=== PATIENT | male | born 1960 | race Caucasian/White ===

== ENCOUNTER 2018-08-02 08:38 | Outpatient (CLI) | payer OTHER ==
[2018-08-02 09:33] LABS: CLARITY,URINE CLEAR (Clear); COLOR,URINE YELLOW (Yellow); GLUCOSE, URINE NEGATIVE (Neg); KETONES,URINE NEGATIVE (Neg); LEUKOCYTE ESTERASE ,URINE NEGATIVE (Neg); NITRITES, URINE NEGATIVE (Neg); OCCULT BLOOD,URINE NEGATIVE (Neg); PROTEIN,URINE NEGATIVE (Neg); UROBILINOGEN,URINE 0.2 E.U/dL (0.2-1.0)
[2018-08-02 09:36] LABS: BASOPHILS # (AUTO) 0.1 X10'3 (0-0.2); BASOPHILS % (AUTO) 1.1 % (0-1); EOSINOPHILS # (AUTO) 0.1 X10'3 (0-0.9); EOSINOPHILS % (AUTO) 1.5 % (0-6); HEMATOCRIT 42.1 % (42.0-52.0); HEMOGLOBIN 14.6 g/dl (14.0-17.9); LYMPHOCYTES # (AUTO) 1.6 X10'3 (1.1-4.8); LYMPHOCYTES % (AUTO) 29.7 % (21-51); MEAN CORPUSCULAR HEMOGLOBIN 32.1 PG (27.0-31.0); MEAN CORPUSCULAR HGB CONC 34.6 g/dL (33.0-36.5); MEAN CORPUSCULAR VOLUME 92.9 FL (78-98); MEAN PLATELET VOLUME 7.5 FL (7.4-10.4); MONOCYTES # (AUTO) 0.5 X10'3 (0-0.9); MONOCYTES % (AUTO) 8.7 % (2-12); NEUTROPHILS # (AUTO) 3.2 X10'3 (1.8-7.7); PLATELET COUNT 253 X10'3 (140-440); RED BLOOD COUNT 4.53 X10'6 (4.70-6.10); RED CELL DISTRIBUTION WIDTH 13.2 % (11.5-14.5); WHITE BLOOD COUNT 5.4 X10'3 (4.5-11.0)
[2018-08-02 10:02] LABS: UA COLLECTION TYPE NON-SPECIFIED
[2018-08-02 10:06] LABS: ALANINE AMINOTRANSFERASE 40 U/L (12-78); ALBUMIN 4.2 G/DL (3.4-5.0); ALBUMIN/GLOBULIN RATIO 1.2 (1.1-1.5); ALKALINE PHOSPHATASE 65 IU/L (46-116); ANION GAP 9 (8-16); ASPARTATE AMINO TRANSFERASE 30 U/L (10-37); BILIRUBIN,TOTAL 0.3 MG/DL (0.1-1.0); BLOOD UREA NITROGEN 23 MG/DL (7-18); BUN/CREATININE RATIO 25.6 (5.4-32.0); CALCIUM 8.9 MG/DL (8.5-10.1); CHLORIDE 103 MMOL/L (99-107); CHOL/HDL RATIO 3.8 (0.00-4.99); CHOLESTEROL 215 MG/DL (0-200); GLUCOSE 100 MG/DL (70-104); HDL CHOLESTEROL 57 MG/DL (35-60); LDL CHOLESTEROL 135 MG/DL (50-100); POTASSIUM 4.1 MMOL/L (3.5-5.1); SODIUM 139 MMOL/L (135-145); TOTAL CARBON DIOXIDE 27.2 MMOL/L (24-32); TOTAL PROTEIN 7.7 G/DL (6.4-8.2); TRIGLYCERIDES 65 MG/DL (20-135); eGFR 88 ML/MIN
[2018-08-03 11:15] LABS: PSA, FREE 0.36 ng/mL
== END 2018-08-02 23:59 | disposition home or self-care (01) ==
LOC: LAB 08:38
PROVIDERS: ATTEND Family Medicine
DX: S72.001S Fracture of unspecified part of neck of right femur, sequela (principal); M19.90 Unspecified osteoarthritis, unspecified site; B07.0 Plantar wart; Z76.89 Persons encountering health services in other specified circumstances; Z80.42 Family history of malignant neoplasm of prostate; X58.XXXS Exposure to other specified factors, sequela
CPT/HCPCS: 36415; 80053; 80061; 81003; 84153; 84154; 84439; 84443; 85025

== ENCOUNTER 2018-12-14 12:33 | Emergency (ER) | payer OTHER ==
[~2018-12-14] VITALS: Ht 182.9 cm; Wt 77.3 kg
[2018-12-14] MEDS ORDERED: morphine 4 MG/ML inj SYRINge IV ONE (13:35)
[2018-12-14] MEDS ORDERED: normal saline 1000ML IV soln IVB ONE (13:35)
[2018-12-14 14:00] LABS: BASOPHILS # (AUTO) 0.1 X10'3 (0-0.2); BASOPHILS % (AUTO) 0.6 % (0-1); EOSINOPHILS % (AUTO) 0.4 % (0-6); HEMATOCRIT 41.4 % (42.0-52.0); HEMOGLOBIN 14.3 g/dl (14.0-17.9); LYMPHOCYTES # (AUTO) 2.3 X10'3 (1.1-4.8); LYMPHOCYTES % (AUTO) 23.8 % (21-51); MEAN CORPUSCULAR HEMOGLOBIN 32.6 PG (27.0-31.0); MEAN CORPUSCULAR HGB CONC 34.6 g/dL (33.0-36.5); MEAN CORPUSCULAR VOLUME 94.4 FL (78-98); MEAN PLATELET VOLUME 7.2 FL (7.4-10.4); MONOCYTES # (AUTO) 0.9 X10'3 (0-0.9); MONOCYTES % (AUTO) 9.8 % (2-12); NEUTROPHILS # (AUTO) 6.3 X10'3 (1.8-7.7); NEUTROPHILS % (AUTO) 65.4 % (42-75); PLATELET COUNT 250 X10'3 (140-440); RED BLOOD COUNT 4.39 X10'6 (4.70-6.10); RED CELL DISTRIBUTION WIDTH 12.9 % (11.5-14.5); WHITE BLOOD COUNT 9.6 X10'3 (4.5-11.0)
[2018-12-14 14:14] LABS: ALANINE AMINOTRANSFERASE 29 U/L (12-78); ALBUMIN 3.8 G/DL (3.4-5.0); ALKALINE PHOSPHATASE 77 IU/L (46-116); ANION GAP 10 (8-16); ASPARTATE AMINO TRANSFERASE 16 U/L (10-37); BILIRUBIN,TOTAL 0.5 MG/DL (0.1-1.0); BLOOD UREA NITROGEN 15 MG/DL (7-18); CALCIUM 8.9 MG/DL (8.5-10.1); CHLORIDE 102 MMOL/L (99-107); CREATININE 0.79 MG/DL (0.60-1.10); GLUCOSE 111 MG/DL (70-104); POTASSIUM 4.2 MMOL/L (3.5-5.1); SODIUM 138 MMOL/L (135-145); TOTAL CARBON DIOXIDE 26.5 MMOL/L (24-32); TOTAL PROTEIN 7.5 G/DL (6.4-8.2); eGFR > 90 ML/MIN
[2018-12-14 15:12] LABS: CLARITY,URINE CLEAR (Clear); COLOR,URINE YELLOW (Yellow); GLUCOSE, URINE NEGATIVE (Neg); KETONES,URINE NEGATIVE (Neg); LEUKOCYTE ESTERASE ,URINE NEGATIVE (Neg); NITRITES, URINE NEGATIVE (Neg); OCCULT BLOOD,URINE NEGATIVE (Neg); PROTEIN,URINE NEGATIVE (Neg); UROBILINOGEN,URINE 0.2 E.U/dL (0.2-1.0)
[2018-12-14 15:18] LABS: UA COLLECTION TYPE CLN CATCH MIDSTREAM
[2018-12-14 15:30] VITALS: BP 120/80
== END 2018-12-14 15:32 | disposition home or self-care (01) ==
LOC: ER 12:34
DX: R10.32 Left lower quadrant pain (principal); M19.90 Unspecified osteoarthritis, unspecified site; R30.9 Painful micturition, unspecified
CPT/HCPCS: 36415; 74176; 80053; 81003; 83605; 85025; 96374; 99284; J2270; J7030

== ENCOUNTER 2019-10-31 17:10 | Emergency (ER) | payer OTHER, BC ==
[~2019-10-31] VITALS: Ht 182.9 cm; Wt 79.4 kg
[2019-10-31] MEDS ORDERED: ondansetron/PF 4mg/2ml inj IV ONE (17:30)
[2019-10-31] MEDS ORDERED: normal saline 1000ML IV soln IVB ONE (17:30)
[2019-10-31] MEDS ORDERED: MULT-1085 PO (17:36)
[2019-10-31] MEDS: morphine 4 MG/ML inj SYRINge IV PRN ×2 (17:41→18:47)
[2019-10-31 17:47] LABS: BASOPHILS # (AUTO) 0.1 X10'3 (0-0.2); BASOPHILS % (AUTO) 0.5 % (0-1); EOSINOPHILS % (AUTO) 0.1 % (0-6); HEMATOCRIT 38.4 % (42.0-52.0); HEMOGLOBIN 13.2 g/dl (14.0-17.9); LYMPHOCYTES % (AUTO) 16.5 % (21-51); MEAN CORPUSCULAR HEMOGLOBIN 32.7 PG (27.0-31.0); MEAN CORPUSCULAR HGB CONC 34.3 g/dL (33.0-36.5); MEAN CORPUSCULAR VOLUME 95.2 FL (78-98); MEAN PLATELET VOLUME 7.4 FL (7.4-10.4); MONOCYTES # (AUTO) 0.9 X10'3 (0-0.9); MONOCYTES % (AUTO) 7.9 % (2-12); NEUTROPHILS # (AUTO) 8.9 X10'3 (1.8-7.7); PLATELET COUNT 268 X10'3 (140-440); RED BLOOD COUNT 4.03 X10'6 (4.70-6.10); RED CELL DISTRIBUTION WIDTH 13.2 % (11.5-14.5); WHITE BLOOD COUNT 11.9 X10'3 (4.5-11.0)
[2019-10-31 18:01] LABS: ALANINE AMINOTRANSFERASE 30 U/L (12-78); ALBUMIN/GLOBULIN RATIO 1.3 (1.1-1.5); ALKALINE PHOSPHATASE 53 IU/L (46-116); ANION GAP 14 (8-16); ASPARTATE AMINO TRANSFERASE 29 U/L (10-37); BILIRUBIN,TOTAL 0.3 MG/DL (0.1-1.0); BLOOD UREA NITROGEN 25 MG/DL (7-18); BUN/CREATININE RATIO 25.5 (5.4-32.0); CALCIUM 8.4 MG/DL (8.5-10.1); CHLORIDE 102 MMOL/L (99-107); CREATININE 0.98 MG/DL (0.60-1.10); GLUCOSE 135 MG/DL (70-104); POTASSIUM 3.6 MMOL/L (3.5-5.1); SODIUM 137 MMOL/L (135-145); TOTAL CARBON DIOXIDE 21.5 MMOL/L (24-32); TOTAL PROTEIN 7.2 G/DL (6.4-8.2); eGFR 79 ML/MIN
[2019-10-31 18:04] LABS: PARTIAL THROMBOPLASTIN TIME 24 SECONDS (22-32)
[2019-10-31] MEDS ORDERED: oxyCODONE/APAP 10/325mg tablet PO ONE (18:40)
[2019-10-31] MEDS ORDERED: TETanus/Pertussis (Acell)/Diphther VAC/PF (Tdap-Adult) 0.5ml syringe IMVAC ONE (18:40)
[2019-10-31] MEDS ORDERED: OXYC-150 PO (19:01)
--- NOTE | 2019-10-31 19:01 | NUR ---
PER ED MD BRYAN NO URINE NEEDED
[2019-10-31 19:11] VITALS: BP 125/83
== END 2019-10-31 19:17 | disposition home or self-care (01) ==
LOC: ER 17:10
DX: S70.01XA Contusion of right hip, initial encounter (principal); S80.812A Abrasion, left lower leg, initial encounter; S80.811A Abrasion, right lower leg, initial encounter; M19.90 Unspecified osteoarthritis, unspecified site; Z79.899 Other long term (current) drug therapy; V89.2XXA Person injured in unspecified motor-vehicle accident, traffic, initial encounter; Y93.89 Activity, other specified; Y92.89 Other specified places as the place of occurrence of the external cause; Y99.8 Other external cause status
CPT/HCPCS: 36415; 71045; 73502; 80053; 85025; 85610; 85730; 86885; 86900; 86901; 90471; 90715; 93005; 96361; 96374; 96375; 96376; 99285; J2270; J2405; J7030

== ENCOUNTER 2020-04-16 08:22 | Outpatient (CLI) | payer BC ==
[~2020-04-16 08:22] MED LIST: MULT-1085 PO; OXYC-150 PO
[2020-04-16 09:18] LABS: CLARITY,URINE CLEAR (Clear); COLOR,URINE YELLOW (Yellow); GLUCOSE, URINE NEGATIVE (Neg); KETONES,URINE NEGATIVE (Neg); LEUKOCYTE ESTERASE ,URINE NEGATIVE (Neg); NITRITES, URINE NEGATIVE (Neg); OCCULT BLOOD,URINE NEGATIVE (Neg); PROTEIN,URINE NEGATIVE (Neg); UROBILINOGEN,URINE 0.2 E.U/dL (0.2-1.0)
[2020-04-16 09:21] LABS: BASOPHILS % (AUTO) 0.8 % (0-1); EOSINOPHILS # (AUTO) 0.1 X10'3 (0-0.9); EOSINOPHILS % (AUTO) 2.3 % (0-6); HEMATOCRIT 41.3 % (42.0-52.0); HEMOGLOBIN 14.1 g/dl (14.0-17.9); LYMPHOCYTES # (AUTO) 2.1 X10'3 (1.1-4.8); LYMPHOCYTES % (AUTO) 38.6 % (21-51); MEAN CORPUSCULAR HEMOGLOBIN 32.1 PG (27.0-31.0); MEAN CORPUSCULAR HGB CONC 34.1 g/dL (33.0-36.5); MEAN CORPUSCULAR VOLUME 94.2 FL (78-98); MEAN PLATELET VOLUME 7.7 FL (7.4-10.4); MONOCYTES # (AUTO) 0.5 X10'3 (0-0.9); MONOCYTES % (AUTO) 9.9 % (2-12); NEUTROPHILS # (AUTO) 2.6 X10'3 (1.8-7.7); NEUTROPHILS % (AUTO) 48.4 % (42-75); PLATELET COUNT 270 X10'3 (140-440); RED BLOOD COUNT 4.39 X10'6 (4.70-6.10); RED CELL DISTRIBUTION WIDTH 13.6 % (11.5-14.5); WHITE BLOOD COUNT 5.4 X10'3 (4.5-11.0)
[2020-04-16 09:26] LABS: UA COLLECTION TYPE CLN CATCH MIDSTREAM
[2020-04-16 09:43] LABS: ALANINE AMINOTRANSFERASE 33 U/L (12-78); ALBUMIN 4.1 G/DL (3.4-5.0); ALBUMIN/GLOBULIN RATIO 1.2 (1.1-1.5); ALKALINE PHOSPHATASE 57 IU/L (46-116); ANION GAP 7 (8-16); ASPARTATE AMINO TRANSFERASE 20 U/L (10-37); BILIRUBIN,TOTAL 0.4 MG/DL (0.1-1.0); BLOOD UREA NITROGEN 22 MG/DL (7-18); BUN/CREATININE RATIO 25.3 (5.4-32.0); CHLORIDE 104 MMOL/L (99-107); CHOL/HDL RATIO 4.1 (0.00-4.99); CHOLESTEROL 224 MG/DL (0-200); CREATININE 0.87 MG/DL (0.60-1.10); GLUCOSE 104 MG/DL (70-104); HDL CHOLESTEROL 54 MG/DL (35-60); LDL CHOLESTEROL 148 MG/DL (50-100); POTASSIUM 4.3 MMOL/L (3.5-5.1); SODIUM 141 MMOL/L (135-145); TOTAL CARBON DIOXIDE 29.8 MMOL/L (24-32); TOTAL PROTEIN 7.5 G/DL (6.4-8.2); TRIGLYCERIDES 101 MG/DL (20-135); eGFR 90 ML/MIN
== END 2020-04-16 23:59 | disposition home or self-care (01) ==
LOC: RAD 08:22
PROVIDERS: ATTEND Family Medicine
DX: M25.551 Pain in right hip (principal); M25.511 Pain in right shoulder; M25.552 Pain in left hip; M54.5 Low back pain; E78.5 Hyperlipidemia, unspecified; E07.9 Disorder of thyroid, unspecified; D64.9 Anemia, unspecified; R53.83 Other fatigue; N30.90 Cystitis, unspecified without hematuria
CPT/HCPCS: 36415; 72110; 73030; 73522; 80053; 80061; 81003; 84439; 84443; 85025

== ENCOUNTER 2020-07-09 08:04 | Outpatient (CLI) | payer BC ==
[2020-07-09 08:46] LABS: CHOLESTEROL 247 MG/DL (0-200); HDL CHOLESTEROL 61 MG/DL (35-60); LDL CHOLESTEROL 166 MG/DL (50-100); TRIGLYCERIDES 66 MG/DL (20-135)
== END 2020-07-09 23:59 | disposition home or self-care (01) ==
LOC: LAB 08:04
PROVIDERS: ATTEND Family Medicine
DX: E78.5 Hyperlipidemia, unspecified (principal); Z80.42 Family history of malignant neoplasm of prostate
CPT/HCPCS: 36415; 80061; 84153

== ENCOUNTER 2022-01-20 08:27 | Outpatient (CLI) | payer BC ==
[2022-01-20 08:53] LABS: BASOPHILS % (AUTO) 0.8 % (0-1); EOSINOPHILS # (AUTO) 0.1 X10'3 (0-0.9); HEMATOCRIT 43.3 % (42.0-52.0); HEMOGLOBIN 14.9 g/dl (14.0-17.9); LYMPHOCYTES # (AUTO) 2.1 X10'3 (1.1-4.8); LYMPHOCYTES % (AUTO) 39.6 % (21-51); MEAN CORPUSCULAR HEMOGLOBIN 32.7 PG (27.0-31.0); MEAN CORPUSCULAR HGB CONC 34.4 g/dL (33.0-36.5); MEAN CORPUSCULAR VOLUME 94.9 FL (78-98); MONOCYTES # (AUTO) 0.5 X10'3 (0-0.9); NEUTROPHILS # (AUTO) 2.5 X10'3 (1.8-7.7); NEUTROPHILS % (AUTO) 48.6 % (42-75); PLATELET COUNT 270 X10'3 (140-440); RED BLOOD COUNT 4.56 X10'6 (4.70-6.10); RED CELL DISTRIBUTION WIDTH 13.2 % (11.5-14.5); WHITE BLOOD COUNT 5.2 X10'3 (4.5-11.0)
[2022-01-20 09:11] LABS: ALANINE AMINOTRANSFERASE 30 U/L (12-78); ALBUMIN 4.1 G/DL (3.4-5.0); ALBUMIN/GLOBULIN RATIO 1.2 (1.1-1.5); ALKALINE PHOSPHATASE 68 IU/L (46-116); ANION GAP 8 (8-16); ASPARTATE AMINO TRANSFERASE 25 U/L (10-37); BILIRUBIN,TOTAL 0.6 MG/DL (0.1-1.0); BLOOD UREA NITROGEN 14 MG/DL (7-18); BUN/CREATININE RATIO 15.6 (5.4-32.0); CHLORIDE 102 MMOL/L (99-107); CHOL/HDL RATIO 3.8 (0.00-4.99); CHOLESTEROL 231 MG/DL (0-200); GLUCOSE 110 MG/DL (70-104); HDL CHOLESTEROL 61 MG/DL (35-60); LDL CHOLESTEROL 143 MG/DL (50-100); POTASSIUM 3.9 MMOL/L (3.5-5.1); SODIUM 137 MMOL/L (135-145); TOTAL PROTEIN 7.5 G/DL (6.4-8.2); TRIGLYCERIDES 120 MG/DL (20-135); eGFR 86 ML/MIN
== END 2022-01-20 23:59 | disposition home or self-care (01) ==
LOC: LAB 08:27
PROVIDERS: ATTEND Physician Assistant
DX: M12.812 Other specific arthropathies, not elsewhere classified, left shoulder (principal); M12.88 Other specific arthropathies, not elsewhere classified, other specified site; M54.2 Cervicalgia; M25.531 Pain in right wrist; M25.512 Pain in left shoulder
CPT/HCPCS: 36415; 72040; 73030; 73110; 80053; 80061; 85025

== ENCOUNTER 2022-03-14 09:41 | Outpatient (CLI) | payer BC | END 2022-03-14 23:59 | disposition home or self-care (01) | LOC: RAD 09:41 | PROVIDERS: ATTEND Physician Assistant | DX: M19.031 Primary osteoarthritis, right wrist (principal); M85.68 Other cyst of bone, other site; M79.89 Other specified soft tissue disorders | CPT/HCPCS: 73221 ==

== ENCOUNTER → 2022-05-30 | Outpatient (CLI) | payer BC | END | disposition home or self-care (01) | LOC: RAD 15:18 | PROVIDERS: ATTEND Physician Assistant | DX: M19.012 Primary osteoarthritis, left shoulder (principal); M25.512 Pain in left shoulder; R07.9 Chest pain, unspecified | CPT/HCPCS: 71100; 73000; 73030 ==

== ENCOUNTER 2022-09-07 11:37 | Outpatient (CLI) | payer BC | END 2022-09-07 23:59 | disposition home or self-care (01) | LOC: RAD 11:37 | PROVIDERS: ATTEND Physician Assistant | DX: M17.12 Unilateral primary osteoarthritis, left knee (principal); M79.89 Other specified soft tissue disorders; M25.562 Pain in left knee | CPT/HCPCS: 73564 ==

== ENCOUNTER 2023-10-06 07:47 | Outpatient (CLI) | payer BC ==
[2023-10-06 09:02] LABS: BASOPHILS % (AUTO) 0.8 % (0-1); EOSINOPHILS # (AUTO) 0.1 X10'3 (0-0.9); EOSINOPHILS % (AUTO) 1.3 % (0-6); HEMATOCRIT 44.4 % (42.0-52.0); HEMOGLOBIN 14.9 g/dl (14.0-17.9); LYMPHOCYTES # (AUTO) 2.1 X10'3 (1.1-4.8); LYMPHOCYTES % (AUTO) 36.7 % (21-51); MEAN CORPUSCULAR HEMOGLOBIN 31.7 PG (27.0-31.0); MEAN CORPUSCULAR HGB CONC 33.5 g/dL (33.0-36.5); MEAN CORPUSCULAR VOLUME 94.5 FL (78-98); MEAN PLATELET VOLUME 6.9 FL (7.4-10.4); MONOCYTES # (AUTO) 0.5 X10'3 (0-0.9); MONOCYTES % (AUTO) 8.7 % (2-12); NEUTROPHILS % (AUTO) 52.5 % (42-75); PLATELET COUNT 277 X10'3 (140-440); RED CELL DISTRIBUTION WIDTH 13.1 % (11.5-14.5); WHITE BLOOD COUNT 5.8 X10'3 (4.5-11.0)
[2023-10-06 09:07] LABS: BILIRUBIN,URINE NEGATIVE (Neg); CLARITY,URINE CLEAR (Clear); COLOR,URINE YELLOW (Yellow); GLUCOSE, URINE NEGATIVE (Neg); KETONES,URINE NEGATIVE (Neg); LEUKOCYTE ESTERASE ,URINE NEGATIVE (Neg); NITRITES, URINE NEGATIVE (Neg); OCCULT BLOOD,URINE NEGATIVE (Neg); PROTEIN,URINE NEGATIVE (Neg); UROBILINOGEN,URINE 0.2 E.U/dL (0.2-1.0)
[2023-10-06 09:11] LABS: UA COLLECTION TYPE CLN CATCH MIDSTREAM
[2023-10-06 09:40] LABS: ALANINE AMINOTRANSFERASE 34 U/L (12-78); ALBUMIN 4.2 G/DL (3.4-5.0); ALBUMIN/GLOBULIN RATIO 1.1 (1.1-1.5); ALKALINE PHOSPHATASE 55 IU/L (46-116); ANION GAP 8 (8-16); ASPARTATE AMINO TRANSFERASE 21 U/L (10-37); BILIRUBIN,TOTAL 0.6 MG/DL (0.1-1.0); BLOOD UREA NITROGEN 18 MG/DL (7-18); BUN/CREATININE RATIO 19.6 (10.0-20.0); CALCIUM 8.9 MG/DL (8.5-10.1); CHLORIDE 102 MMOL/L (99-107); CHOL/HDL RATIO 3.9 (0.00-4.99); CHOLESTEROL 237 MG/DL (0-200); CREATININE 0.92 MG/DL (0.60-1.10); FREE T4 (FREE THYROXINE) 0.92 NG/DL (0.73-1.40); GLUCOSE 110 MG/DL (70-104); HDL CHOLESTEROL 61 MG/DL (35-60); LDL CHOLESTEROL 154 MG/DL (50-100); MAGNESIUM 2.1 MG/DL (1.5-2.4); POTASSIUM 4.2 MMOL/L (3.5-5.1); SODIUM 139 MMOL/L (135-145); THYROID STIMULATING HORMONE 1.02 ulU/ml (0.34-4.50); TOTAL CARBON DIOXIDE 28.6 MMOL/L (24-32); TOTAL PROTEIN 7.9 G/DL (6.4-8.2); TRIGLYCERIDES 77 MG/DL (20-135); eGFR 84 ML/MIN
== END 2023-10-06 23:59 | disposition home or self-care (01) ==
LOC: LAB 07:47
PROVIDERS: ATTEND Nurse Practitioner Family
DX: M43.17 Spondylolisthesis, lumbosacral region (principal); M25.551 Pain in right hip; R29.898 Other symptoms and signs involving the musculoskeletal system; M54.9 Dorsalgia, unspecified; Z00.01 Encounter for general adult medical examination with abnormal findings
CPT/HCPCS: 36415; 72050; 72074; 72110; 73503; 80053; 80061; 81003; 83735; 84439; 84443; 85025

== ENCOUNTER 2024-02-05 08:53 | Outpatient (CLI) | payer BC | END 2024-02-05 23:59 | disposition home or self-care (01) | LOC: RAD 08:53 | PROVIDERS: ATTEND Nurse Practitioner Family | DX: M16.11 Unilateral primary osteoarthritis, right hip (principal); M25.851 Other specified joint disorders, right hip; M43.17 Spondylolisthesis, lumbosacral region; M25.551 Pain in right hip | CPT/HCPCS: 73700 ==

== ENCOUNTER 2024-08-26 13:46 | Emergency (ER) | payer BC ==
[~2024-08-26] VITALS: Ht 182.9 cm; Wt 72.6 kg
--- NOTE | 2024-08-26 14:51 | RADIOLOGY REPORT ---
CLINICAL INDICATION: LEFT HAND PAIN after Fall TECHNIQUE: 3 radiographic views of the left hand were obtained. Comparison: None FINDINGS/IMPRESSION: There is no evidence of acute fracture or dislocation. The visualized joint space is well maintained. The alignment is anatomical. There is no radiopaque foreign body.
--- NOTE | 2024-08-26 15:55 | Physician Documentation ---
History of Present Illness ~ Chief Complaint: Mechanical Fall Stated Complaint: FALL/ANKLE LAC/SMASHED HAND/NO BLOOD THINNERS Time Seen by MD: 16:40 HPI Jose is a very pleasant 63-year-old male [place] to the emergency department. He had a mechanical fall and suffered a left lower leg laceration that is approximately 4-1/2 cm in length. Reports he did some aggressive irrigation on it. Taken this long [place] get [place] Additionally fell he put out his left hand and injured it also. He has injury a nail bed injury. Tetanus within 5 Years?: Yes Medication Reconciliation Allergies: Coded Allergies: No Known Allergies (Unverified , 08/26/24) Scheduled Doxycycline Hyclate (Doxycycline Hyclate), 1 CAP PO Q12H Multivitamin (Multi Vitamin Daily), 1 TAB PO DAILY, (Reported) Scheduled PRN Oxycodone HCl/Acetaminophen (Percocet 10-325 mg Tablet), 1 TAB PO TID PRN PRN for pain Past Medical History Past Medical History: Diverticulitis, Arthritis Lives with: Spouse Lives In: Home Review of Systems ROS Hand pain and leg laceration as stated above in the HPI, otherwise all systems are reviewed and negative. Musculoskeletal: Reports: joint pain, joint swelling, muscle pain, other (Lower leg laceration left, left hand swelling) Physical Exam Vital Signs: RN Vital Signs have been reviewed: Yes, Temperature: 98.9, Source: Temporal, Heart Rate: 78, Respiratory Rate: 18, BP: 161/71, Pulse Oximetry: 98, Weight: 72.600 General Appearance: alert, WD/WN, mild distress Head: no evidence of injury Face: normal Eye Lid: normal inspection Back: normal inspection Extremities Swelling to the left hand no obvious deformities. Nail bed injury. 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: No Tolerated Procedure Well?: yes, no complications Progress Results/Orders Results/Orders Orders - EDGARD BRO PAC Tib/Fib (08/26/24 ) Completed Orders - EDGARD BRO PAC Hydrocodone/Apap 5/325mg Tab ([place] 5/32 (08/26/24 18:15) Ibuprofen Tablet (Motrin Tablet) (08/26/24 18:15) Doxycycline 100mg Capsule (Vibramycin 10 (08/26/24 18:12) Tib/Fib (08/26/24 ) Vital Signs 08/26/24 08/26/24 08/26/24 08/26/24 13:49 19:23 19:27 19:28 Temp 98.9 Pulse 78 74 Resp 18 18 18 B/P (MAP) 161/71 149/94 (112) Pulse Ox 98 99 O2 Flow Rate 0 08/26/24 08/26/24 21:21 21:24 Temp 98.9 Pulse 82 Resp 18 18 B/P (MAP) 138/78 (98) Pulse Ox 99 99 O2 Flow Rate 0 EKG/XRAY/CT/US/VASC/MRI Bone/Soft Tissue X-Ray (Ext.) #1: Additional Comment EXAM: DI TIB/FIB 2 VWS CLINICAL INDICATION: Laceration TECHNIQUE: DI TIB/FIB 2 VWS Comparison: None FINDINGS/IMPRESSION: There is no evidence of acute fracture or dislocation. The visualized joint space is well maintained. The alignment is anatomical. There is no radiopaque foreign body. Soft tissue laceration tibial aspect distally. Electronically Signed by:MIGUE TANG MD Date & Time: 08/26/24 184 Dictated by: MIGUE TANG MD Dictation date and time: 08/26/24 1830 I have reviewed and agree with the radiology report. I have reviewed and interpreted the imaging as: No fracture or dislocation, no radiopaque foreign body Bone/Soft Tissue X-Ray (Ext.) #2: Additional Comment CLINICAL INDICATION: LEFT HAND PAIN after Fall TECHNIQUE: 3 radiographic views of the left hand were obtained. Comparison: None FINDINGS/IMPRESSION: There is no evidence of acute fracture or dislocation. The visualized joint space is well maintained. The alignment is anatomical. There is no radiopaque foreign body. Electronically Signed by:MAX EM MD Date & Time: 08/26/241447 Dictated by: MAX EM MD Dictation date and time: 08/26/241447 I have reviewed and agree with the radiology report. I have reviewed and interpreted the imaging as: No fracture or dislocation Medical Decision Making Findings This 63-year-old presented with pain to his left hand and a laceration to his left yates, x-ray did not demonstrate evidence of fracture or dislocation to the left hand or the left yates. Wound to left fourth finger was dressed by nursing staff. Wound to left yates thoroughly irrigated and loosely approximated utilizing simple interrupted sutures, patient tolerated procedure well. Due to the delayed presentation of injury patient will be placed on course of oral a ntibiotics. Patient is otherwise well-appearing with a benign physical exam and stable vital signs in his appropriate for outpatient follow up. Patient provided return to care precautions, home care instructions, and follow up instructions which he verbalized understanding of. The note accurately reflects work and decisions made by me.ISAÍAS Gonzalez 08/27/24 03:40 Differential Dx:Considerations: Include: Closed head injury, Fracture(s), Pulmonary contusion, Spine injury, Vascular injury, Foreign body(s), Hematoma(s), Other (Neurovascular injury) Additional Comment 63-year-old male upgraded in triage by nurse practitioner and received medical screening examination. Followed up by myself. Introduced myself as Edgard Bro physician clinical trials assistant. Patient to receive pain management a former [place] x2, ibuprofen 400 mg p.o. and 1st dose doxycycline. Review of the left hand shows no obvious fracture dislocation or foreign body. We will obtain x-rays of the left lower leg to evaluate for gas, foreign body or bony pathologies. Reports tetanus is up-to-date. Patient to be signed out to colleague Delano Newman pending plan: 1. Loose closure of the left lower extremity after aggressive irrigation. 2. Wound care to the left hand. 3. 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 Departure Time of Disposition: 21:11 Disposition: 01 HOME / SELF CARE / HOMELESS Impression: Primary Impression: Laceration of left lower leg Qualified Codes: S81.812A - Laceration without foreign body, left lower leg, initial encounter Additional Impression: Contusion of left hand Qualified Codes: S60.222A - Contusion of left hand, initial encounter Condition: Improved Discharge Instructions: RICE Therapy for Routine Care of Injuries, Sutured Wound Care Additional Instructions: Keep the area clean dry and covered, you may wash it gently but do not soak it. Please take the antibiotics as prescribed. Please follow up with your primary care provider in the next few days for wound recheck. Return to your choice of medical provider in 10-14 days for suture removal. Please return to the emergency department for any new or worsening concerning symptoms. Referrals: NO PRIMARY CARE PROVIDER (PCP) Prescriptions Doxycycline Hyclate (Doxycycline Hyclate) 100 Mg Capsule 1 CAP PO Q12H for 7 Days, #14 CAP Prov: DELANO NEWMAN 08/26/24 Education Educated: Patient Educated regarding: diagnosis, treatment, prognosis, need for follow up Additional Comment Medical Screen Exam This 63-year-old male presents with pain and wounds to his left yates and left 4th finger following a trip and fall yesterday while camping, patient reports that he fell down and approximately 4 foot embankment striking him piece of metal with his yates. Patient reports no loss of consciousness and no blood thinner use. Patient reports no other acute symptoms or concerns. Patient rep orts last tetanus shot approximately three years ago. VITALS: Reviewed and as above. GENERAL: Alert, nontoxic appearing, no apparent distress. HEENT: Atraumatic RESPIRATORY: No increased work of breathing, no respiratory distress, speaking in full clear sentences MUSCULOSKELETAL: Swelling to left hand and left 2nd finger otherwise no obvious deformities, walking bearing weight with steady gait SKIN: Dressed wounds to left yates and left 4th finger MSE performed in triage and patient returned to ED lobby by nursing staff The note accurately reflects work and decisions made by me.ISAÍAS Gonzalez 08/27/24 03:40 Signature Scribe Signature: No scribe Attestation: The note accurately reflects work and decisions made by me.ISAÍAS Gonzalez 08/27/24 03:41 DELANO NEWMAN Aug 26, 2024 15:54 [facility]GARD BRO [facility] Aug 26, 2024 18:41
--- NOTE | 2024-08-26 18:50 | RADIOLOGY REPORT ---
EXAM: DI TIB/FIB 2 VWS CLINICAL INDICATION: Laceration TECHNIQUE: DI TIB/FIB 2 VWS Comparison: None FINDINGS/IMPRESSION: There is no evidence of acute fracture or dislocation. The visualized joint space is well maintained. The alignment is anatomical. There is no radiopaque foreign body. Soft tissue laceration tibial aspect distally.
[2024-08-26] MEDS: DOXYCYCLINE 100MG CAPSULE PO STA (19:22)
[2024-08-26] MEDS: ibuprofen tablet 400 MG TABLET PO ONE (19:23)
[2024-08-26] MEDS: HYDROcodone/acetaminophen 5mg/325mg tablet PO ONE (19:23)
[2024-08-26] MEDS: LIDOcaine 1% W/epiNEPHrine 1:100,000 20ml vial SQ ONE (19:24)
[2024-08-26] MEDS ORDERED: DOXY-412 PO (21:10)
[2024-08-26 21:21] VITALS: BP 138/78; PULSE 82
[2024-08-26 21:24] VITALS: RESP 18; TEMP 98.9; O2SAT 99
== END 2024-08-26 21:28 | disposition home or self-care (01) ==
LOC: ER 13:46
DX: S81.812A Laceration without foreign body, left lower leg, initial encounter (principal); S60.222A Contusion of left hand, initial encounter; M19.90 Unspecified osteoarthritis, unspecified site; W19.XXXA Unspecified fall, initial encounter; Y93.89 Activity, other specified; Y92.89 Other specified places as the place of occurrence of the external cause; Y99.8 Other external cause status
CPT/HCPCS: 12002; 73130; 73590; 99284; J3490

== ENCOUNTER 2024-10-29 14:40 | Outpatient (CLI) | payer BC ==
--- NOTE | 2024-10-29 20:20 | RADIOLOGY REPORT ---
EXAM: MR MRI UPPER EXTREMITY LEFT INDICATION: LOCALIZED SWELLING, MASS AND LUMP, UNSPECIFIED TECHNIQUE: Multisequence, multiplanar MRI of the left wrist was performed in the absence of gadoliniu m contrast material. COMPARISON: KNEE, COMP 4 VW MIN on DOS: 09/07/22 FINDINGS: CARPAL TUNNEL: The traversing flexor tendons are intact. Normal thickness of the overlying flexor ret inaculum. Normal signal intensity and morphology of the median nerve. FLEXOR TENDONS: Intact without tenosynovitis. EXTENSOR TENDONS: Intact without tenosynovitis. TRIANGULAR FIBROCARTILAGE: Intact. EXTRINSIC/INTRINSIC LIGAMENTS: Intact. JOINTS: No joint effusion. No measurable cartilage defect. BONES: Abnormal bone marrow edema without discrete fracture plane of the 4th middle phalanx. MUSCLES: Question minimal feathery edema of the distal aspect of the thenar compartment musculature c orrelate for low-grade muscle strain. NEUROVASCULAR: Normal signal intensity and morphology of the ulnar nerve at Guyon's canal. The radial neurovascular bundle is intact. OTHER: Soft tissue edema along the entirety of the course of the 4th digit. No drainable fluid collec tion. IMPRESSION: 1. Question bone contusion versus incompletely characterized nondisplaced fracture in the region of t he 4th middle phalanx. 2. Surrounding subcutaneous adipose tissue edema of the 4th digit. 3. Question minimal feathery edema of the distal aspect of the thenar compartment musculature correla te for low-grade muscle strain.
== END 2024-10-29 23:59 | disposition home or self-care (01) ==
LOC: MRI02 14:40
PROVIDERS: ATTEND Nurse Practitioner Family
DX: M79.642 Pain in left hand (principal); R60.0 Localized edema; W19.XXXD Unspecified fall, subsequent encounter
CPT/HCPCS: 73218

== ENCOUNTER 2024-11-06 08:09 | Outpatient (CLI) | payer BC ==
[2024-11-06 08:39] LABS: LEUKOCYTE ESTERASE ,URINE NEGATIVE (Neg); NITRITES, URINE NEGATIVE (Neg); OCCULT BLOOD,URINE NEGATIVE (Neg)
[2024-11-06 08:41] LABS: MEAN PLATELET VOLUME 7.0 FL (7.4-10.4); RED CELL DISTRIBUTION WIDTH 13.3 % (11.5-14.5)
[2024-11-06 08:49] LABS: UA COLLECTION TYPE CLN CATCH MIDSTREAM
--- NOTE | 2024-11-06 09:00 | RADIOLOGY REPORT ---
CLINICAL INDICATION: CELLULITIS OF LEFT LOWER EXTREMITY, INJURY DUE TO FALL TECHNIQUE: 3 radiographic views of the left ankle were obtained. Comparison: DI TIB/FIB 2 VWS on DOS: 08/26/24, CT CT LOWER EXTREMITY on DOS: 02/05/24, KNEE, COMP 4 VW MIN on DOS: 09/07/22 FINDINGS/IMPRESSION: There is no evidence of acute fracture or dislocation. The visualized joint space is well maintained. The alignment is anatomical. There is no radiopaque foreign body.
--- NOTE | 2024-11-06 09:02 | RADIOLOGY REPORT ---
CLINICAL INDICATION: CELLULITIS OF LEFT LOWER EXTREMITY, INJURY DUE TO FALL TECHNIQUE: 3 radiographic views of the left foot were obtained. Comparison: DI TIB/FIB 2 VWS on DOS: 08/26/24, CT CT LOWER EXTREMITY on DOS: 02/05/24, KNEE, COMP 4 VW MIN on DOS: 09/07/22 FINDINGS/IMPRESSION: There is no evidence of acute fracture or dislocation. The visualized joint space is well maintained. The alignment is anatomical. There is no radiopaque foreign body.
[2024-11-06 09:05] LABS: CHOL/HDL RATIO 3.5 (0.00-4.99); CREATININE 0.94 MG/DL (0.60-1.10); LDL CHOLESTEROL 119 MG/DL (50-100); TOTAL CARBON DIOXIDE 28.2 MMOL/L (24-32); eGFR 82 ML/MIN
[2024-11-07 13:13] LABS: PSA, ULTRASENSITIVE W/O SERIAL 2.840 ng/mL (0.000-4.000); TESTOSTERONE, SERUM 386 ng/dL (264-916)
[2024-11-09 15:14] LABS: TESTOSTERONE, FREE, DIRECT 3.3 pg/mL (6.6-18.1)
== END 2024-11-06 23:59 | disposition home or self-care (01) ==
LOC: RAD 08:09
PROVIDERS: ATTEND Nurse Practitioner Family
DX: M79.642 Pain in left hand (principal); L03.116 Cellulitis of left lower limb; W19.XXXD Unspecified fall, subsequent encounter; R97.20 Elevated prostate specific antigen [PSA]; R22.9 Localized swelling, mass and lump, unspecified; R22.31 Localized swelling, mass and lump, right upper limb; E78.5 Hyperlipidemia, unspecified; M19.90 Unspecified osteoarthritis, unspecified site; Z00.01 Encounter for general adult medical examination with abnormal findings; R53.83 Other fatigue
CPT/HCPCS: 36415; 73610; 73630; 80053; 80061; 81003; 84153; 84402; 84403; 84439; 84443; 85025